=== PATIENT | male | born 1985 | race Caucasian/White ===

== ENCOUNTER 2020-06-15 13:27 | Outpatient (REF) | payer OTHER, SELFPAY ==
[2020-06-16 14:42] LABS: H Pylori Breath Test DETECTED (NOT DETECTED)
== END 2020-06-15 13:28 | disposition home or self-care (01) ==
LOC: HO.LNP 13:27
PROVIDERS: Visit Provider Physician Assistant
DX: A04.8 Other specified bacterial intestinal infections (principal); E66.01 Morbid (severe) obesity due to excess calories
CPT/HCPCS: 83013

== ENCOUNTER → 2020-07-09 09:48 | Outpatient (BNVA) | payer OTHER, SELFPAY | PROVIDERS: PCP Internal Medicine; Referring Provider Internal Medicine; Visit Provider Physician Assistant | DX: Z76.89 Persons encountering health services in other specified circumstances (principal) ==

== ENCOUNTER 2020-07-26 13:30 | Outpatient (REF) | payer OTHER, SELFPAY ==
[2020-07-28 13:53] LABS: H Pylori Breath Test DETECTED (NOT DETECTED)
== END 2020-07-26 13:31 | disposition home or self-care (01) ==
LOC: HO.LNP 13:30
PROVIDERS: PCP Internal Medicine; Visit Provider Surgery
DX: Z11.0 Encounter for screening for intestinal infectious diseases (principal); E66.01 Morbid (severe) obesity due to excess calories; Z68.43 Body mass index [BMI] 50.0-59.9, adult
CPT/HCPCS: 83013

== ENCOUNTER → 2020-08-16 13:54 | Outpatient (BNVA) | payer OTHER, SELFPAY | PROVIDERS: PCP Internal Medicine; Visit Provider Surgery | DX: Z76.89 Persons encountering health services in other specified circumstances (principal) ==

== ENCOUNTER 2020-08-18 14:29 | Outpatient (REF) | payer OTHER, SELFPAY ==
--- NOTE | 2020-08-18 15:03 | ECG_ITS ---
Test Reason : SOB, PREOP Blood Pressure : / mmHG Vent. Rate : 085 BPM Atrial Rate : 085 BPM P-R Int : 138 ms QRS Dur : 092 ms QT Int : 336 ms P-R-T Axes : 043 037 015 degrees QTc Int : 399 ms Normal sinus rhythm Normal ECG No previous ECGs available Referred By: Sana Nelson Electronically Signed By:EUGENIA SAGASTUME MD
--- NOTE | 2020-08-18 15:14 | XR_ITS ---
EXAMINATION: XR CHEST CLINICAL INFORMATION: Shortness of breath. COMPARISON: None TECHNIQUE: 2 views of the chest were obtained. FINDINGS: No significant abnormality is noted involving the heart, lungs, mediastinum, bony thorax or soft tissues. XR/XR chest 2V IMPRESSION: Unremarkable chest examination.
[2020-08-18 15:23] LABS: MANUAL DIFF FLAG NO
[2020-08-18 15:28] LABS: Basophils Absolute Auto 0.1 X10*3/uL (0.0-0.2); Basophils Percent Auto 0.7 % (0-2); Eosinophils Absolute Auto 0.3 X10*3/uL (0.0-0.4); Eosinophils Percent Auto 2.8 % (0-4); Hematocrit 45.5 % (42-52); Hemoglobin 15.1 g/dl (14.0-18.0); Imm Gran Abs Auto 0.02 X10*3/uL (0.00-0.03); Imm Gran Pct Auto 0.2 % (0.0-0.4); Lymphocytes Absolute Auto 2.1 X10*3/uL (1.2-4.9); Lymphocytes Percent Auto 19.6 % (20-40); Mean Corpuscular HGB Conc 33.2 g/dl (31.0-36.0); Mean Corpuscular Volume 93.4 fL (80-98); Mean Platelet Volume 9.1 fL (9.4-12.4); Monocytes Absolute Auto 0.6 X10*3/uL (0.1-1.2); Monocytes Percent Auto 5.9 % (2-11); Neutrophils Absolute Auto 7.5 X10*3/uL (2.0-8.3); Neutrophils Percent Auto 70.8 % (45-73); Platelet Count 352 X10*3/uL (160-400); Red Blood Count 4.87 X10*6/uL (4.60-5.80); Red Cell Distribution Width 12.2 % (11.0-16.0); White Blood Count 10.5 X10*3/uL (4.8-10.8)
[2020-08-18 15:56] LABS: Alanine Aminotransferase 28 U/L (0-40); Albumin Level 4.4 g/dL (3.5-5.0); Alkaline Phosphatase 59 U/L (39-117); Anion Gap 12 (12-20); Aspartate Amino Transferase 21 U/L (5-37); Bilirubin Total 0.5 mg/dL (0.0-1.0); Blood Urea Nitrogen 9 mg/dL (9-16); C Reactive Protein 0.81 mg/dL (< or = 0.50); Calcium 9.4 mg/dL (8.4-10.2); Carbon Dioxide 28 mmol/L (22-29); Chloride 106 mmol/L (96-108); Cholesterol 165 mg/dL; Estimated Glomerular Filt Rate > 60; Glucose Fasting 94 mg/dL (60-99); HDL Cholesterol 46 mg/dL; Iron 38 mcg/dL (45-160); LDL Cholesterol Calculated 109 mg/dl; Percent Iron Saturation 11 % (15-50); Potassium 4.3 mmol/l (3.3-5.1); Sodium 142 mmol/L (135-145); Total Iron Binding Capacity 344 mcg/dL (228-428); Total Protein 8.4 g/dL (6.5-8.0); Triglycerides 53 mg/dL; Unsaturated Iron Binding 306 ug/dL
[2020-08-18 16:18] LABS: Thyroid Stimulating Hormone 0.75 uIU/mL (0.32-4.0)
[2020-08-18 16:23] LABS: Vitamin B12 664 pg/mL (200-900)
[2020-08-19 17:21] LABS: Calcium (PTHI) 9.4 mg/dL (8.6-10.3); PTHI 48 pg/mL (14-64)
[2020-08-20 20:27] LABS: Zinc 71 mcg/dL (60-130)
[2020-08-22 12:37] LABS: Vitamin B1 10 nmol/L (8-30)
[2020-08-24 13:12] LABS: Vitamin A 36 mcg/dL (38-98)
== END 2020-08-18 14:30 | disposition home or self-care (01) ==
LOC: HO.LAB 14:29
PROVIDERS: PCP Internal Medicine; Visit Provider Surgery
DX: Z01.818 Encounter for other preprocedural examination (principal); R06.02 Shortness of breath
CPT/HCPCS: 36415; 71046; 80053; 80061; 82306; 82607; 83540; 83970; 84425; 84443; 84590; 84630; 85025; 86140; 93005

== ENCOUNTER → 2020-08-27 13:22 | Outpatient (BNVA) | payer OTHER, SELFPAY | PROVIDERS: PCP Internal Medicine; Visit Provider Surgery | DX: Z01.818 Encounter for other preprocedural examination (principal) ==

== ENCOUNTER 2020-09-01 05:53 | Inpatient (IN) | payer OTHER, SELFPAY ==
[2020-08-30 16:39] LABS: Glucose Urine UA NEG (NEG); Leukocyte Esterase Urine NEG (NEG); Nitrite Urine NEG (NEG); PH 5.5 (5.0-8.0); Specific Gravity - Urine >= 1.030 (1.005-1.025); Urine Blood TRACE (NEG); Urine Ketones NEG (NEG); Urine Protein NEG (NEG-TRACE)
[2020-08-30 16:44] LABS: Appearance Urine CLEAR; Color Urine YELLOW
[2020-08-30 16:52] LABS: Iron 60 mcg/dL (45-160); Percent Iron Saturation 19 % (15-50); Total Iron Binding Capacity 324 mcg/dL (228-428); Unsaturated Iron Binding 264 ug/dL
[2020-08-30 16:55] LABS: RBC Urine 0-2 /HPF (0); WBC Urine 0 /HPF (0-4)
[2020-08-30 17:13] LABS: Vitamin D 25-OH Total 18.8 ng/mL (>30)
--- NOTE | 2020-08-31 11:38 | P.CONAN_ITS ---
Documented by User: Elaine Garcia 08/31/20 11:40 HPI - Anesthesia Eval Consult details Narrative: 35yo M for Gastric Sleeve PMFSH Past Medical History Medical History (Updated 09/01/20 @ 11:26 by Leonora Arellano) Depression Fatty liver H. pylori infection Morbid obesity Obstructive sleep apnea Family History Family History Father No problems noted. Mother H/O gastric bypass Acid reflux Brother No problems noted. Brother No problems noted. Sister No problems noted. 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 If so, by whom?: No Advance Directives: No Advance Directives Information Provided: No Advance Directives on File: No Recently lost weight without trying: No Meds Allergies Allergy/AdvReac Type Severity Reaction Status Date / Time No Known Allergies Allergy Verified 08/27/20 14:38 Home Medications Medication Instructions Recorded Confirmed Type acetaminophen [Tylenol Extra 1,000 mg PO Q6H PRN 09/01/20 09/01/20 History Strength] simethicone [Gas Relief 80 mg PO QID PRN 09/01/20 09/01/20 History (simethicone)] Exam Exam Date and Time: August 31, 2020 1138 Pertinent Lab Results Pertinent Lab Results: Laboratory Tests 08/18/20 08/18/20 14:59 14:59 WBC 10.5 Hgb 15.1 Hct 45.5 Plt Count 352 Sodium 142 Potassium 4.3 Chloride 106 Carbon Dioxide 28 BUN 9 Creatinine 0.86 Laboratory Tests 08/30/20 08/30/20 08/30/20 15:48 15:48 15:48 Iron 60 TIBC 324 % Saturation 19 Unsat Iron Binding 264 25-OH Vitamin D Total 18.8 Urine Color YELLOW Urine Appearance CLEAR Urine pH 5.5 Ur Specific [place] >= 1.030 H Urine Protein NEG Urine Glucose (UA) NEG Urine Ketones NEG Urine Blood TRACE Urine Nitrite NEG Ur Leukocyte Esterase NEG Urine RBC 0-2 Urine WBC 0 Ur Squamous Epith Cells NONE Urine Bacteria NONE Blood Type O Positive Antibody Screen NEGATIVE Narrative Narrative: EKG 08/18/20 Normal sinus rhythm Normal ECG No previous ECGs available Assessment and Plan Assessment Anesthesia Assessment: Chart Reviewed Documented by User: Leonora Arellano 09/01/20 11:27 [facility] Past Medical History Medical History (Updated 09/01/20 @ 11:26 by Leonora Arellano) Depression Fatty liver H. pylori infection Morbid obesity Obstructive sleep apnea Family History Family History Father No problems noted. Mother H/O gastric bypass Acid reflux Brother No problems noted. Brother No problems noted. Sister No problems noted. Family history of problems with anesthesia: No Surgical History Surgical History (Updated 09/01/20 @ 10:39 by Urvashi Michelle RN) No pertinent past surgical history [place] teeth extracted History of Problems with Anesthesia: No Social History Social History (Updated 08/27/20 @ 14:38 by Sana Nelson MD) Household Members Other:: grandmother Are you a primary insurance healthcare consultant to a significant other at home: Yes Do you presently have visiting nurse or other home services: No Alcohol intake: never Smoking Status: Never smoker Use of substances other than those prescribed or required for medical reasons: No Have you been hit, kicked, punched, or otherwise hurt by someone within the past year? If so, by whom?: No Advance Directives: No Advance Directives Information Provided: No Advance Directives on File: No Recently lost weight without trying: No Meds Allergies Allergy/AdvReac Type Severity Reaction Status Date / Time No Known Allergies Allergy Verified 08/27/20 14:38 Home Medications Medication Instructions Recorded Confirmed Type acetaminophen [Tylenol Extra 1,000 mg PO Q6H PRN 09/01/20 09/01/20 History Strength] simethicone [Gas Relief 80 mg PO QID PRN 09/01/20 09/01/20 History (simethicone)] Exam Height,Weight and Vital Signs: Vital Signs Temp Pulse Resp BP Pulse Ox 09/01/20 10:18 97.1 F 99 20 146/84 H 96 Pertinent Lab Results Pertinent Lab Results: Lab Results 08/30/20 08/30/20 08/30/20 Range/Units 15:48 15:48 15:48 Iron 60 (45-160) mcg/dL TIBC 324 (228-428) mcg/dL % Saturation 19 (15-50) % Unsat Iron Binding 264 ug/dL 25-OH Vitamin D Total 18.8 (>30) ng/mL Urine Color YELLOW Urine Appearance CLEAR Urine pH 5.5 (5.0-8.0) Ur Specific [place] >= 1.030 H (1.005-1.025) Urine Protein NEG (NEG-TRACE) MG/DL Urine Glucose (UA) NEG (NEG) MG/DL Urine Ketones NEG (NEG) MG/DL Urine Blood TRACE (NEG) Urine Nitrite NEG (NEG) Ur Leukocyte Esterase NEG (NEG) Urine RBC 0-2 (0) /HPF Urine WBC 0 (0-4) /HPF Ur Squamous Epith Cells NONE /LPF Urine Bacteria NONE /LPF COVID-19 ([facility]) (Negative) COVID-19 Clin Com Blood Type O Positive Antibody Screen NEGATIVE 09/01/20 Range/Units 10:10 Iron (45-160) mcg/dL TIBC (228-428) mcg/dL % Saturation (15-50) % Unsat Iron Binding ug/dL 25-OH Vitamin D Total (>30) ng/mL Urine Color Urine Appearance Urine pH (5.0-8.0) Ur Specific [place] (1.005-1.025) Urine Protein (NEG-TRACE) MG/DL Urine Glucose (UA) (NEG) MG/DL Urine Ketones (NEG) MG/DL Urine Blood (NEG) Urine Nitrite (NEG) Ur Leukocyte Esterase (NEG) Urine RBC (0) /HPF Urine WBC (0-4) /HPF Ur Squamous Epith Cells /LPF Urine Bacteria /LPF COVID-19 (LARRY) Negative (Negative) COVID-19 Clin Com See Note Blood Type Antibody Screen Airway Mallampati Class: III TM Dist: >3cm Neck ROM: Full Heart: RRR Lungs: CTAB Assessment and Plan Assessment Anesthesia Assessment: Anesthesia Plan Discussed and Chart Reviewed Final Anesthetic Review NPO: Yes ASA Class: III Final Preanesthetic Review: No Changes in Pt Med Stat, Meds/Allgs Chart Reviewed, Consent Obtained/Reviewed and Anes Risks/Benef Reviewed Patient Risk: Intermediate Procedure Risk: Intermediate Assessment/Block/Sedation in SS: Assess/Block/Sedation-SS Anesthetic Plan Anesthetic Plan: GA Disposition: Extended PACU
--- NOTE | 2020-08-31 15:19 | MHC.SHP ---
Pre-Procedural Eval Section B Chief Complaint: obesity Allergies: Allergies Allergy/AdvReac Type Severity Reaction Status Date / Time No Known Allergies Allergy Verified 08/27/20 14:38 Plan I have reviewed the history and physical and performed a pertinent physical examination on my patient. No changes have occurred unless specified.
[2020-09-01] VITALS (17 sets, daily range): BP systolic 135–193; BP diastolic 50–100; PULSE 78–102; RESP 14–20; TEMP 36–37.3; O2SAT 96–99; BMI 50.2
[2020-09-01] MEDS: Lactated Ringers 1,000 ML 100 ML IVCONT (10:35)
[2020-09-01] MEDS: cefoTEtan disodium 2 GM in 0.9 % Sodium Chloride 50 ML IV ×2 (10:36→23:57)
[2020-09-01 10:48] LABS: COVID-19 Test Negative (Negative)
--- NOTE | 2020-09-01 11:57 | PM.OP ---
Brief Operative Note Date of Service: 09/01/20 Pre-op diagnosis: Morbid obesity, BMI 50.2, and sleep apnea Post-op diagnosis: same Procedure: Laparoscopic sleeve gastrectomy, jennifer block, and intraoperative endoscopy Implants: emersonidien cabrera Surgeon: Sana Nelson MD Anesthesia: GETA Push Button Switch Assembler: Nori Em Estimated blood loss (mL): 10 Pathology: other (Partial gastrectomy) Condition: stable Disposition: PACU
--- NOTE | 2020-09-01 11:57 | W.PM.OPN ---
Operative Note Operative Note Date of Service: 09/01/20 Narrative: Patient was brought into the operating room and placed on the operating room table in the supine position. General anesthesia was induced. Normal DVT prophylaxis was instituted and the patient received 2 grams of cefotetan preoperatively. The abdomen was then prepped and draped in the normal sterile fashion. A safety time-out was performed. A mixture of 1% lidocaine with epinephrine and ??% Marcaine plain was used to anesthetize the planned incision site in the left upper quadrant. A #11 scalpel was used to make a 5 mm left upper quadrant transverse incision through which a veress needle was placed. Three pops were heard going through the fascia. A saline drop test was used to confirm that the veress needle was intraabdominal. An optiview technique was then used to place a 5mm port in the left upper quadrant. A 5 mm 30 degree laproscope was then placed through this port and the abdominal cavity was surveyed and was normal. The patient was placed in reverse Trendelenburg positioning. A alvin liver retractor was then placed in the subxyphoid position and it was used to hold up the left lobe of the liver to the abdominal wall. This was secured to the bed using the liver retractor chang. A ARABELLA block was then performed for pain control on the right side of the abdomen. A 5 mm port was placed in the right upper quadrant near the falciform ligament. A 12 mm port was then placed in the mid epigastrium. One additional 5 mm port was placed in the left upper quadrant just to the left of the placement of the first port. I then performed a ARABELLA block on the left side of the abdomen. I then removed the epigastric fat pad; there was no evidence of hiatal hernia. I then opened up the angle of His. We then gained entry into the lesser sac about 4-5 cm from the pylorus. I had anesthesia place a 34 [place] orogastric tube into the distal antrum to use as a sizing tool for gastric pouch size. I divided the short gastric vessels up to the angle of His. We then started the creation of the gastric pouch by firing a 60 mm purple load endostapler up the stomach about 4-5 cm from the pylorus. We completed the creation of the gastric pouch using a total of 5 firings of a 60 mm purple load stapler. We had anesthesia remove the orogastric tube, then we clamped across the distal antrum using a fired 60 mm endostapler. We flattened the patient and then instilled normal saline surrounding the newly created staple line. I then performed an on-table endoscopy. I passed the gastroscopy into the posterior oropharynx and down the esophagus evaluating the esophageal mucosa which was normal. There was no evidence of hiatal hernia. I passed the gastroscope into the gastric pouch and insufflated the gastric pouch. There was healthy pink mucosa and no evidence of active bleeding. There was no evidence of leak on laparoscopy. I desufflated the gastric pouch and removed the endoscope. I removed the endostapler from the abdomen and suctioned the fluid from the left upper quadrant. I then removed the partial gastrectomy specimen through the epigastric 12 mm port site. I reapproximated the 12 mm port using a 0 maxon suture with a laparoscopic suture passer. I instilled local anesthetic into the fascial closure site and tied the suture down at a pressure of 8-10 mm of Hg. There was no residual fascial defect. We removed the liver retractor and the left upper quadrant 5 mm ports under direct visualization. There was no evidence of any active bleeding. I desufflated the abdomen through the last remaining port and removed the laparoscope an d 5 mm port. We reapproximated all incisions with a 4-0 monocryl subcuticular stitch. We cleaned and dried the abdominal skin and applied dermabond skin glue. All count were correct at the end of the case. The patient was awake and in stable condition prior to extubation and transfer to the recovery room.
--- NOTE | 2020-09-01 14:15 | P.DS_ITS ---
DS: Providers Provider Date of Service: 09/02/20 Date of admission: 09/01/20 05:53 Primary care physician: Gino Sarmiento MD DS: Medications Discharge Medications Home Medications: Home Medications Medication Instructions Recorded Confirmed acetaminophen [Tylenol Extra 1,000 mg PO Q6H PRN 09/01/20 09/01/20 Strength] simethicone [Gas Relief 80 mg PO QID PRN 09/01/20 09/01/20 (simethicone)] Previous Rx's Medication Instructions Recorded cholecalciferol (vitamin D3) 1,250 1,250 mcg PO QWEEK #4 cap 08/19/20 mcg (50,000 unit) capsule ferrous sulfate 142 mg (45 mg 142 mg PO DAILY #30 tab 08/19/20 iron) tablet,extended release vitamin A palmitate 10,000 unit 10,000 unit PO DAILY 30 Days #30 08/24/20 tablet tab docusate sodium 100 mg capsule 100 mg PO BID #30 cap 08/27/20 famotidine 20 mg tablet 20 mg PO DAILY #30 tab 08/27/20 ondansetron HCl 4 mg tablet 4 mg PO Q6H PRN #30 tab 08/27/20 DS: Summary Time Spent with Patient Time attestation: Total time spent providing and/or coordinating discharge services: Discharge coordination time: Greater than 30 minutes Physical Exam Vital Signs: Vital Signs: Last Vital Signs Temp 97.1 F 09/01/20 10:18 Pulse 99 09/01/20 10:18 Resp 20 09/01/20 10:18 BP 146/84 H 09/01/20 10:18 Pulse Ox 96 09/01/20 10:18 Body Mass Index 50.2 DS: Data Data Completed and Pending Pending studies at discharge: Pending at discharge 09/01/20 13:07 Surgical [PTH] Routine Labs on day of discharge: Laboratory Tests 08/30/20 08/30/20 08/30/20 15:48 15:48 15:48 Iron 60 TIBC 324 % Saturation 19 Unsat Iron Binding 264 25-OH Vitamin D Total 18.8 Urine Color YELLOW Urine Appearance CLEAR Urine pH 5.5 Ur Specific [place] >= 1.030 H Urine Protein NEG Urine Glucose (UA) NEG Urine Ketones NEG Urine Blood TRACE Urine Nitrite NEG Ur Leukocyte Esterase NEG Urine RBC 0-2 Urine WBC 0 Ur Squamous Epith Cells NONE Urine Bacteria NONE COVID-19 ([facility]) COVID-19 Clin Com Blood Type O Positive Antibody Screen NEGATIVE 09/01/20 10:10 Iron TIBC % Saturation Unsat Iron Binding 25-OH Vitamin D Total Urine Color Urine Appearance Urine pH Ur Specific [place] Urine Protein Urine Glucose (UA) Urine Ketones Urine Blood Urine Nitrite Ur Leukocyte Esterase Urine RBC Urine WBC Ur Squamous Epith Cells Urine Bacteria COVID-19 ([facility]ARR[facility]) Negative COVID-19 Clin Com See Note Blood Type Antibody Screen Discharge Plan Discharge Patient Disposition: Home, Self-Care Referrals: Gino Sarmiento MD [Primary Care Provider] - Discharge Medications: Continued cholecalciferol (vitamin D3) 1,250 mcg (50,000 unit) capsule 1,250 mcg PO QWEEK Qty: 4 RF: 1 vitamin A palmitate 10,000 unit tablet 10,000 unit PO DAILY 30 Days Qty: 30 RF: 0 acetaminophen [Tylenol Extra Strength] 500 mg tablet 1,000 mg PO Q6H PRN (Reason: Pain, Mild) RF: 0 simethicone [Gas Relief (simethicone)] 80 mg tablet,chewable 80 mg PO QID PRN (Reason: abdominal distention) RF: 0 famotidine [Pepcid AC] 20 mg tablet 20 mg PO DAILY Qty: 30 RF: 1 ondansetron HCl [Zofran] 4 mg tablet 4 mg PO Q6H PRN (Reason: nausea and vomiting) Qty: 30 RF: 1 docusate sodium [Colace] 100 mg capsule 100 mg PO BID Qty: 30 RF: 1 Discontinued Slow Fe 142 mg (45 mg iron) tablet extended release 142 mg PO DAILY Qty: 30 RF: 1 Discharge Orders: Discharge Order (Routine); Ordered 09/02/20 Ordered By: Sana Nelson Diet: other Activity on Discharge: No heavy lifting Stand Alone Forms: Patient Portal Discharge page Activity Restrictions/Additional Instructions: Discharge Instructions 1. Please call your doctor or come back to the emergency room should any new symptoms arise. 2. You will receive a courtesy call from [facility] 24-48 hours after discharge. 3. Activity: abstain from alcohol, practice limited stair climbing, no bending, no driving, no exercise, no illicit substances, no lifting, no sex, no tub bath, no work. 4. Diet: continue stage 3 protein shakes until your [address] Nelson. 5. Dressing Change/Wound Care: Your incision is covered by surgical glue. If the area is tender, you may apply an ice pack for short intervals (no more than 20 minutes on, followed by at least 20 minutes off). Do not apply heat. Do not use creams, lotions, or topical antibiotics unless instructed to do so by your surgeon. These can cause infection or allergic reaction. 6. Call your doctor if: - Your temperature exceeds 101.5 F - You experience excessive pain or swelling - You have an unexpected reaction to medication - You have excessive bleeding - You experience continued vomiting/nausea - Your incision begins to separate - Your incision shows signs of infection such as increased redness, swelling, excessive pain, heat, or drainage (light blood or clear fluid is normal) 7. General instructions: - No lifting greater than 5 lbs for the next 4 weeks. - No driving within 24 hours of taking narcotic pain medications. - If you do not move your bowels in the next 2 days, please take milk of magnesia over the counter. Please follow the post op diet and do not advance your diet until you are seen in the office in about 2 weeks. - Please walk around your home every hour or two to prevent blood clots from forming in your legs. You do not need to wake from sleeping to walk. - Please sleep in a bed or couch to prevent kinking at the hips and knees. - Please take your incentive spirometer (your lung acid retort operator) home with you and use it for the next few days to prevent pneumonias. - You may shower, no hot tubs, baths or swimming pools. - Please call the office with any questions or concerns such as increasing abdominal pain, fever, chills, shortness of breath, chest pain, leg pain or swelling, or redness or drainage from your incisions. - Please stay on stage 3 diet which includes sugar free clear liquids such as ice pops and jello and broth and crystal light. Avoid all carbonation. Please drink 3 protein shakes with at least 25-30 grams of protein daily or 3 of the Celebrate 4:1 shakes which can be purchased in our office. The Celebrate shakes have all of the bariatric vitamins you need if you consume these shakes. If you are drinking other protein shakes, you will need to purchase the Celebrate multivitamins and calcium that we provide in the office (they will provide all the vitamins you need). Please make sure you are consuming at least 40-60 ounces of water in addition to your 3 protein shakes daily. 8. Do not hesitate to contact the office with any questions at . Discharge Summary Date of Service: 09/02/20 Admitting Diagnosis: obesity Discharge Diagnosis: same Procedure Performed: LSG, jennifer block, intraoperative endoscopy Discharge Medications: 1. Simethicone 80mg tablet chewable (Si tablet every 6 hours orally for 7 days, #28, 1 RF) q4h prn gas 2. Acetaminophen 500 mg tablet (Si tablets as needed every 6 hours orally for 30 days, #240, 0 RF) 3. Ondansetron 4 mg tablet disintegrating (Si tablet every 6 hours orally for 7 days, #28, 1 RF) 4. Colace 100 mg capsule (Si capsule twice a day for 30 days, #60, 2 RF) 5. Pepcid 20 mg chewable tablet (Si tablet twice a day for 30 days, #60, 3 RF) Discharge Instructions: The patient should continue on the stage III bariatric diet, which includes 3 protein shakes of at least 20-30g of protein on a daily basis. The patient was encouraged to avoid drinking liquids with her protein shakes. They should wait 30-45 minutes in between her meals and drinking water. She should drink at least 40-60 ounces of water on a daily basis. They should ambulate while at home to avoid any blood clots in her lower extremities. They should call with any questions or concerns such as increase in abdominal pain, persistent nausea, vomiting, redness and drainage from her incisions, fever, chills, shortness of breast, or chest pain beyond what is normal for her. The patient should avoid all heavy lifting greater than 5 pounds for the next 4 weeks. The patient is already scheduled to follow up with me in 2 weeks time, but should call the office with any questions prior to that follow up appointment. The patient should not advance their diet until they are seen in the office for the 2 week appointment. Hospital Course: The patient was admitted after undergoing LSG. They were started on stage II (1 oz of fluid every 15 minutes) on POD #0. The next morning they were evaluated and started on stage III diet (protein shakes). All labs were within normal limits. On post-operative day #1 she was feeling better, nausea and epigastric pain improved and they were tolerating stage III bariatric diet well. The patient was discharged home. Discharge Disposition: Home. Visit Report Forms: Patient Portal Discharge page Care Plan Goals: weight loss Health Concerns: obesity Plan of Treatment: lap sleeve gastrectomy Discharge Date/Time: 09/02/20 09:44
--- NOTE | 2020-09-01 14:16 | PM.PNGS ---
Subjective Subjective Date of Service: 09/02/20 <Nori Em PA-C - Last Filed: 09/02/20 15:09> 09/02/20 <Sana Nelson MD - Last Filed: 09/02/20 15:15> Interval history: POD #1: Patient is doing well. Has been ambulating, using the incentive spirometer, and tolerating po liquids. No nausea or abdominal pain. Has some mild incisional pain. <Nori Em PA-C - Last Filed: 09/02/20 15:09> Patient seen and examined with DANTE Em. Patient is Pod #1 s/p lap sleeve gastrectomy. Doing well. Tolerating stage 3 diet, ambulating in hallway. Pain well controlled. Denies nausea or vomiting. Vitals and labs reviewed and are within limit for post op day 1. On exam, patient is well appearing, abdomen is soft, nd, mild appropriate incisional tenderness. Incisions c/d/I with dermabond in place. Plan: d/c home today. Follow up with me in [address] Nelson <Sana Nelson MD - Last Filed: 09/02/20 15:15> Physical Exam Vital Signs: Vital Signs: Last Vital Signs Temp 97.1 F 09/01/20 10:18 Pulse 99 09/01/20 10:18 Resp 20 09/01/20 10:18 BP 146/84 H 09/01/20 10:18 Pulse Ox 96 09/01/20 10:18 Body Mass Index 50.2 <Nori Em PA-C - Last Filed: 09/02/20 15:09> Const: General: cooperative, comfortable, no acute distress, alert and awake <Nori Em PA-C - Last Filed: 09/02/20 15:09> Nutritional Appearance: obese <Nori Em PA-C - Last Filed: 09/02/20 15:09> GI: Inspection: Yes normal to inspection, Yes incision (normal, slight erythema at site of surgical glue, no tenderness/warmth/drai) and Yes obesity <Nori Em PA-C - Last Filed: 09/02/20 15:09> Extrem: Right lower extremity: lower leg Details: no tenderness; no edema <ERUM Waldron Last Filed: 09/02/20 15:09> Left lower extremity: lower leg Details: no tenderness; no edema <ERUM Waldron Last Filed: 09/02/20 15:09> Progress Note: A&P Assessment and plan (1) Morbid obesity due to excess calories: Status: Acute <ERUM Waldron Last Filed: 09/02/20 15:09> (2) S/P laparoscopic sleeve gastrectomy: Status: Acute <ERUM Waldron Last Filed: 09/02/20 15:09> Assessment and Plan: POD #1: Patient doing well and will be discharged home today. All instructions given in writing. Follow up as scheduled in 2 weeks. <ERUM Waldron Last Filed: 09/02/20 15:09> Fall Risk Details Current Medications: Current Medications Generic Name Dose Route Start Last Admin Trade Name Freq PRN Reason Stop Dose Admin Fentanyl 25 mcg 09/01/20 11:28 Fentanyl Citrate/Pf 100 Mcg/2 Ml Vial IVPUSH Q5M PRN Pain, Moderate (Pain Scale 4-6 Hydromorphone HCl 0.25 mg 09/01/20 11:28 Hydromorphone Hcl 0.5 Mg/0.5 Ml Syringe IVPUSH Q5M PRN Pain, Severe (Pain Scale 7-10) Lactated Ringer's 1,000 mls @ 100 mls/hr 09/01/20 06:00 09/01/20 10:35 Lr IVCONT 100 mls/hr .Q10H PAVITHRA Administration Promethazine HCl 6.25 mg/ 50.25 mls @ 201 mls/hr 09/01/20 11:28 Sodium Chloride IV ONCE PRN Nausea and Vomiting Ondansetron HCl 4 mg 09/01/20 11:28 Ondansetron Hcl 4 Mg/2 Ml Vial IVPUSH ONCE PRN Nausea and Vomiting <ERUM Waldron Last Filed: 09/02/20 15:09> Time Spent With Patient Time: Total time spent is greater than 50% in coordination of care (as documented) at patient's floor/unit and/or counseling patient: <ERUM Waldron Filed: 09/02/20 15:09> Time with patient: 25 - 35 minutes <Nori Em PA-C - Last Filed: 09/02/20 15:09>
[2020-09-01] MEDS: Lactated Ringers 1,000 ML 150 ML IVCONT (16:41)
[2020-09-01] MEDS: Famotidine/PF 20 MG/2 ML VIAL IVPUSH ×2 (16:42→20:46)
[2020-09-01] MEDS: Lactated Ringers 1,000 ML 125 ML IVCONT (23:46)
[2020-09-01] MEDS: ondansetron HCL 4 MG/2 ML VIAL IVPUSH (23:57)
[2020-09-01] MEDS: 0.9 % Sodium Chloride Flush 3 ML SYRINGE IVFLUSH (23:58)
[2020-09-02 01:05] VITALS: BP 158/95; PULSE 94; RESP 18; TEMP 37.1; O2SAT 96
[2020-09-02 03:38] VITALS: BP 154/87; PULSE 90; RESP 18; TEMP 36.8; O2SAT 96
[2020-09-02 04:26] LABS: MANUAL DIFF FLAG NO
[2020-09-02 04:27] LABS: Basophils Percent Auto 0.2 % (0-2); Hematocrit 42.2 % (42-52); Hemoglobin 14.4 g/dl (14.0-18.0); Imm Gran Abs Auto 0.06 X10*3/uL (0.00-0.03); Imm Gran Pct Auto 0.3 % (0.0-0.4); Lymphocytes Absolute Auto 1.5 X10*3/uL (1.2-4.9); Lymphocytes Percent Auto 8.1 % (20-40); Mean Corpuscular HGB Conc 34.1 g/dl (31.0-36.0); Mean Corpuscular Hemoglobin 31.6 pg (27.0-33.0); Mean Corpuscular Volume 92.5 fL (80-98); Monocytes Absolute Auto 0.9 X10*3/uL (0.1-1.2); Monocytes Percent Auto 4.9 % (2-11); Neutrophils Absolute Auto 15.5 X10*3/uL (2.0-8.3); Neutrophils Percent Auto 86.5 % (45-73); Platelet Count 369 X10*3/uL (160-400); Red Blood Count 4.56 X10*6/uL (4.60-5.80); Red Cell Distribution Width 11.9 % (11.0-16.0); White Blood Count 17.9 X10*3/uL (4.8-10.8)
[2020-09-02 04:49] LABS: Anion Gap 19 (12-20); Blood Urea Nitrogen 12 mg/dL (9-16); Calcium 9.2 mg/dL (8.4-10.2); Carbon Dioxide 25 mmol/L (22-29); Chloride 101 mmol/L (96-108); Creatinine Clr Calc Pharmacy 162.6; Estimated Glomerular Filt Rate > 60; Glucose Random 106 mg/dL (60-115); Potassium 4.3 mmol/l (3.3-5.1); Sodium 141 mmol/L (135-145)
--- NOTE | 2020-09-02 06:21 | PC.NURSE ---
pt's bp at 0000 was 168/92, [employer] message sent to [facility]. Elina asked us to bladder scan pt. Bladder scanned for 77 ml. Pt's bp at 0100 was 158/95. Elina ordered hydralazine to be given if SBP >160, no need for hydralazine at this time.
[2020-09-02] MEDS: ondansetron HCL 4 MG/2 ML VIAL IVPUSH (07:50)
[2020-09-02 08:00] VITALS: BP 147/87; PULSE 83; RESP 19; TEMP 36.7; O2SAT 95
[2020-09-02] MEDS: Famotidine/PF 20 MG/2 ML VIAL IVPUSH (08:59)
--- NOTE | 2020-09-02 09:05 | MHC.CM.PN ---
PATIENT IS FULLY INDEPENDENT. HE USES NO DME OR VNA SERVICES. HIS MOTHER WILL BE ARRIVING TO DAY TO PROVIDE TRANSPORTATION HOME. PLAN IS SELF CARE. RN AWARE.
--- NOTE | 2020-09-02 09:49 | HO.POSTANES ---
Post Anesthesia Evaluation Post Anesthesia Evaluation Vital Signs: Vital Signs Temp Pulse Resp BP Pulse Ox 09/02/20 08:00 98.0 F 83 19 147/87 H 95 09/02/20 03:38 98.2 F 90 18 154/87 H 96 09/02/20 01:05 98.8 F 94 18 158/95 H 96 09/01/20 23:23 99.1 F 102 H 20 168/92 H 96 Anesthesia: General Endotracheal-GETA Mental Status: Awake Pain Control: Satisfactory Nausea/Vomiting: None Hydration: Adequate Anesthesia-Related Issues: No Anes. Related Issues
[2020-09-07 13:37] LABS: Vitamin A 33 mcg/dL (38-98)
== END 2020-09-02 09:44 | disposition home or self-care (01) | DRG 621 ==
LOC: HO.SSSA 14:19 → HO.S3 14:28
PROVIDERS: Physician Assistant; Admitting Provider Surgery; PCP Internal Medicine; Visit Provider Surgery
PROC: 0DB64Z3 Excision of Stomach, Percutaneous Endoscopic Approach, Vertical (ICD-10-PCS; CPT 43845; principal; 2020-09-01 11:50)
DX: E66.01 Morbid (severe) obesity due to excess calories (principal); G47.30 Sleep apnea, unspecified; Z20.822 Contact with and (suspected) exposure to COVID-19; Z68.43 Body mass index [BMI] 50.0-59.9, adult; Z79.899 Other long term (current) drug therapy
CPT/HCPCS: 36415; 80048; 81001; 82306; 83540; 84590; 85025; 86850; 86900; 86901; 87635; 88307; 88342; 99024; C1776; J0131; J1100; J1170; J2250; J2370; J2405; J3010

== ENCOUNTER → 2020-09-09 12:59 | Outpatient (BNVA) | payer OTHER, SELFPAY | PROVIDERS: PCP Internal Medicine; Visit Provider Physician Assistant ==

== ENCOUNTER → 2020-09-16 13:52 | Outpatient (BNVA) | payer OTHER, SELFPAY | PROVIDERS: PCP Internal Medicine; Visit Provider Surgery ==

== ENCOUNTER → 2020-10-01 12:31 | Outpatient (BNVA) | payer OTHER, SELFPAY | PROVIDERS: PCP Internal Medicine; Visit Provider Physician Assistant ==

== ENCOUNTER → 2020-10-12 08:19 | Outpatient (BNVA) | payer OTHER, SELFPAY | PROVIDERS: PCP Internal Medicine; Visit Provider Dietitian, Registered ==

== ENCOUNTER → 2020-11-05 14:41 | Outpatient (BNVA) | payer OTHER, SELFPAY | PROVIDERS: PCP Internal Medicine; Visit Provider Dietitian, Registered | DX: E66.01 Morbid (severe) obesity due to excess calories (principal) | CPT/HCPCS: 97803 ==

== ENCOUNTER → 2021-01-27 13:52 | Outpatient (BNVA) | payer OTHER, SELFPAY | PROVIDERS: PCP Internal Medicine; Visit Provider Physician Assistant ==

== ENCOUNTER → 2021-03-24 08:09 | Outpatient (BNVA) | payer OTHER, SELFPAY | PROVIDERS: PCP Internal Medicine; Visit Provider Dietitian, Registered ==

== ENCOUNTER → 2021-09-05 13:33 | Outpatient (BNVA) | payer OTHER, SELFPAY | PROVIDERS: PCP Internal Medicine; Referring Provider Internal Medicine; Visit Provider Physician Assistant Surgical ==